=== PATIENT | male | born 1970 | race Caucasian/White ===

== ENCOUNTER 2024-05-01 16:49 | Emergency (ER) | payer BC, SELFPAY ==
[2024-05-01 16:56] VITALS: BP 194/114
[2024-05-01 17:23] LABS: % Basophils 0.2 % (0-2); % Eosinophils 3.9 % (0-6); % Immature Granulocytes 0.2 % (0-0.5); % Lymphocytes 29.6 % (20.5-51.1); % Monocytes 10.5 % (1.7-9.3); % Neutrophils 55.6 % (42.2-75.2); Absolute Eosinophils 0.2 10^3/uL (0-0.7); Absolute Lymphocytes 1.6 10^3/uL (1.2-3.4); Absolute Monocytes 0.6 10^3/uL (0.1-0.6); Hematocrit 43.4 % (39.0-52.0); Hemoglobin 14.8 g/dL (13.0-18.0); Mean Corp Hgb Conc. 34.1 g/dL (33.0-37.0); Mean Corpuscular Hgb 29.3 pg (27.0-31.0); Mean Corpuscular Volume 85.9 fL (80.0-94.0); Mean Platelet Volume 8.9 fL (7.4-10.4); Nucleated Red Blood Cells % 0 % (-); Platelet Count 169 10^3/uL (130-400); Red Blood Cell Count 5.05 10^6/uL (4.70-6.10); Red Cell Dist. Width 12.8 % (11.5-14.5); White Blood Cell Count 5.4 10^3/uL (4.8-10.8)
[2024-05-01 17:33] LABS: ALT (SGPT) 48 U/L (0-50); AST (SGOT) 34 U/L (17-59); Albumin 4.8 g/dl (3.5-5.0); Alkaline Phosphatase 83 U/L (38-126); Blood Urea Nitrogen 18 mg/dl (9-20); Calcium 9.2 mg/dl (8.4-10.2); Carbon Dioxide 28 mmol/L (22-30); Chloride 104 mmol/L (98-107); Glucose 95 mg/dl (70-99); Potassium 3.5 mmol/L (3.5-5.1); Sodium 142 mmol/L (135-145); Total Bilirubin 0.7 mg/dl (0.2-1.3); eGFR > 60.00
[2024-05-01 17:45] LABS: Troponin I < 0.012 ng/ml
--- NOTE | 2024-05-01 20:18 | ED.GENMED ---
History of Present Illness
General
Chief Complaint: Blood Pressure Problem
Time Seen by Provider: 05/01/24 20:06
History of Present Illness
History of Present Illness:
Patient presents to the emergency department with hypertension. Notes that while he was driving today he did have some mild lightheadedness that resolved on its own. This was earlier this afternoon. Denies any chest pain. States that his blood
pressure has been elevated when he is checked in the past though he has never been started on any medication. Denies headache or visual changes. Denies chest pain or difficulty breathing. Denies severe abdominal pain. Denies lower extremity edema
Phy Exam
Physical Exam
Physical Exam:
GENERAL APPEARANCE: NAD, well developed/ well nourished
EYES lids/conjunctiva normal
EARS/NOSE/THROAT Mucous membranes moist, uvula midline without oral pharyngeal erythema, exudate or swelling
HEAD/NECK normocephalic atraumatic, neck is supple.
RESPIRATORY respiratory effort normal, speaks in full sentences, no accessory muscle use. Lungs clear to auscultation without rhonchi, wheezes, rales
CARDIAC Regular rate and rhythm, no edema.
ABDOMINAL Soft, ND/NT.
MUSCLES/EXTREMITIES No abnormal range of motion, no swelling.
SKIN Warm, pink and dry. No rashes
NEUROLOGICAL Speech is clear and appropriate. Normal level of consciousness. 5/5 strength in all extremities.
PSYCH Normal mood and affect. Judgement/competence is appropriate
Course
Orders/Labs/Results
Orders:
Orders
05/01/24 16:59
Electrocardiogram (*1) Urgent
Reason for Study: Hypertension, Benign
EKG- Treatment ONCE
05/01/24 17:09
Complete Blood Count/With Diff Urgent
Comprehensive Metabolic Panel Urgent
Troponin I Urgent
05/01/24 20:18
Amlodipine [Norvasc] 5 mg PO ONCE ONE
Abnormal Lab Results
05/01/24
17:09
Monocytes % 10.5 H %
(1.7-9.3)
05/01/24 17:09
05/01/24 17:09
Vital Signs
Initial and Last Documented VS:
Initial Vital Signs
Temp Pulse Resp BP Pulse Ox
98.2 F 74 18 194/114 98
05/01/24 16:56 05/01/24 16:56 05/01/24 16:56 05/01/24 16:56 05/01/24 16:56
Last Documented Vital Signs
Temp Pulse Resp BP Pulse Ox
98.2 F 74 18 176/108 98
05/01/24 16:56 05/01/24 16:56 05/01/24 16:56 05/01/24 20:26 05/01/24 16:56
*Critical Care Note
Total Time (30-74mins, 75-104mins- exclusive of procedures): Not Applicable
ED Attending Note
ED Attending Note
ED Attending Note:
Patient with asymptomatic hypertension. No evidence of acute endorgan damage. Given his report of multiple prior episodes of hypertension not currently on medication, will prescribe a 30-day course of low-dose amlodipine. Instructed him to
follow-up with his primary care doctor for continued management of this is an outpatient
-
Portions of this chart may have been created with voice recognition software.� Occasional wrong word or��sound alike� substitutions may have occurred due to the inherent limitations of voice recognition software.
Discharge Plan
Departure
Patient Disposition: Home (Routine Discharge)
Date of Disposition: 05/01/24
Time of Disposition: 20:20
Patient with high blood pressure during this ER visit?: Yes
Discharge Problem:
Hypertension
Instructions: High Blood Pressure (DC)
Prescriptions:
New
amlodipine 5 mg tablet
5 mg PO DAILY Qty: 30 0RF
Activity Restrictions/Additional Instructions:
Follow-up closely with your primary doctor for continued management of your blood pressure. Return to the emergency department with new or worsening symptoms.
Interventions
Interventions:
*Risk Screen - Suicide Last Done: 05/01/24 16:56
*General Assessment Last Done: 05/01/24 16:56
*Neglect/Abuse Screening Last Done: 05/01/24 16:56
*ED COVID-19 Vaccine History Last Done: 05/01/24 16:56
*Nursing Disposition Last Done: 05/01/24 20:28
ED- Cardiac Assessment Last Done: 05/01/24 20:06
ED- Neurological Assessment Last Done: 05/01/24 20:06
ED- Pulmonary Assessment Last Done: 05/01/24 20:06
Discharge Date and Time
Discharge Date/Time: 05/01/24 20:37
Print Language: GERMAN
[2024-05-01] MEDS: NORVASC 5 MG PO (20:23)
[2024-05-01 20:26] VITALS: BP 176/108
== END 2024-05-01 20:37 | disposition home or self-care (01) ==
LOC: EMR 16:49
PROVIDERS: Physician Assistant; EMERGENCY PHYSICIAN Emergency Medicine; FAMILY PHYSICIAN Family Medicine
DX: I10 Essential (primary) hypertension (principal)
CPT/HCPCS: 99283; 80053; 84484; 85025; 93005

== ENCOUNTER 2024-06-01 08:02 | Emergency (ER) | payer BC, SELFPAY ==
[2024-06-01 08:07] VITALS: BP 155/90
[2024-06-01 08:23] LABS: % Basophils 0.5 % (0-2); % Eosinophils 5.3 % (0-6); % Immature Granulocytes 0.3 % (0-0.5); % Lymphocytes 22.8 % (20.5-51.1); % Monocytes 8.8 % (1.7-9.3); % Neutrophils 62.3 % (42.2-75.2); Absolute Eosinophils 0.3 10^3/uL (0-0.7); Absolute Lymphocytes 1.3 10^3/uL (1.2-3.4); Absolute Monocytes 0.5 10^3/uL (0.1-0.6); Absolute Neutrophils 3.7 10^3/uL (1.4-6.5); Hematocrit 40.4 % (39.0-52.0); Hemoglobin 14.3 g/dL (13.0-18.0); Mean Corp Hgb Conc. 35.4 g/dL (33.0-37.0); Mean Corpuscular Hgb 29.5 pg (27.0-31.0); Mean Corpuscular Volume 83.5 fL (80.0-94.0); Mean Platelet Volume 9.2 fL (7.4-10.4); Nucleated Red Blood Cells % 0 % (-); Platelet Count 178 10^3/uL (130-400); Red Blood Cell Count 4.84 10^6/uL (4.70-6.10); Red Cell Dist. Width 12.5 % (11.5-14.5); White Blood Cell Count 5.9 10^3/uL (4.8-10.8)
[2024-06-01 08:40] LABS: ALT (SGPT) 42 U/L (0-50); AST (SGOT) 29 U/L (17-59); Albumin 4.5 g/dl (3.5-5.0); Alkaline Phosphatase 97 U/L (38-126); Blood Urea Nitrogen 15 mg/dl (9-20); Calcium 8.8 mg/dl (8.4-10.2); Carbon Dioxide 26 mmol/L (22-30); Chloride 104 mmol/L (98-107); Glucose 98 mg/dl (70-99); Potassium 3.5 mmol/L (3.5-5.1); Sodium 139 mmol/L (135-145); Total Bilirubin 0.8 mg/dl (0.2-1.3); Total Protein 6.7 g/dl (6.3-8.2); eGFR > 60.00
[2024-06-01 08:50] LABS: Troponin I < 0.012 ng/ml
--- NOTE | 2024-06-01 11:17 | ED.GENMED ---
History of Present Illness
General
Chief Complaint: Chest Pain
Source: patient
Exam Limitations: none
Time Seen by Provider: 06/01/24 10:47
Nursing documentation reviewed up to this point in time: agreed with
History of Present Illness
History of Present Illness:
54 y/o M with h/o newly dx htn
on amlodipine since being seen here 05/01
had fu with PCP the following week, told to check bp a few times a day and has f/u today with PCP at 1pm
he has beent aking his bp 4-5 times a day and getting readings 140s-170s/90-100s
he starte dhaving chest tightness 2 days ago, feeling sore like achy muscle in L upper chest
worse with bending over but not worse with exetion, no sob, no pleuritic pain, no leg swelling, no fever/chills
no radiation to back and arm and neck
fhx of CAD in [place]
but no personal history
pt has been feeling stressed
no h/o blood clots
he did fall 2 weeks ago, incidentlaly; wasn't tyler to mention this but whne i mentioned gettting xray, he remembered about a rib series xray he wanted to get but never did after falling 2 weeks ago on to R ribs; he has no pleuritic pain there
anymore but is requesting xray.
Past History
Past History
ED Past Medical History: HTN
Social History
Tobacco: Non-smoker
Alcohol: None
Drug: None
Personal: Single
Employment: Employed
Review of Systems
Review of Systems
Allergies reviewed?: Yes
All Other Systems: Not applicable
Phy Exam
Physical Exam
Physical Exam:
GENERAL: Alert , in no apparent distress
EYE: pupils equal and reactive
NECK: Supple
ENT: o/p clr, mmm.
CARDIAC: Regular rate and rhythm .
LUNGS: Clear breath sounds bilaterally, no acute respiratory distress, no wheezes/rales/rhonchi
CHEST WAL: nontender, normal movmeent;
ABDOMEN: Soft, without focal tenderness, no r/g, no cvat, normal bowel sounds
NEUROLOGICAL: Alert and oriented, no focal neuro deficits
SKIN: Warm and dry, skin intact.
MUSCULOSKELETAL: No edema, well perfused. neg bud's sign
PSYCH: seems anxious
Scores
Heart Score for Chest Pain Patients
STEMI patient?: No
History: Slightly or Non-Suspicious
ECG: Normal
Age: >45 - <65 years
Risk Factors: 1 or 2 Risk Factors
Troponin: </= Normal Limit
Heart Score for Chest Pain Patients: 2
Heart Score Risk: 2.5% MACE over next 6 weeks
Course
Orders/Labs/Results
Orders:
Orders
06/01/24 08:03
Electrocardiogram (*1) Urgent
Reason for Study: Chest Pain
EKG- Treatment ONCE
06/01/24 08:12
Complete Blood Count/With Diff Urgent
Comprehensive Metabolic Panel Urgent
Troponin I Urgent
06/01/24 11:20
CR Chest - 2 Views Urgent
Comment:
Reason For Exam: chest pain
06/01/24 11:22
CR Ribs-right 2 Vw No Pa Chest Urgent
Reason For Exam: R rib injury 2 weeks ago, mild pain
06/01/24 08:12
06/01/24 08:12
Vital Signs
Initial and Last Documented VS:
Initial Vital Signs
Temp Pulse Resp BP Pulse Ox
36.6 C 67 18 155/90 97
06/01/24 08:07 06/01/24 08:07 06/01/24 08:07 06/01/24 08:07 06/01/24 08:07
Last Documented Vital Signs
Temp Pulse Resp BP Pulse Ox
36.6 C 66 13 145/93 96
06/01/24 08:07 06/01/24 11:23 06/01/24 11:23 06/01/24 11:23 06/01/24 11:23
MDM/Problems Addressed
Differential Diagnosis Includes:
anxiety, chest wall pain, htn, acs
MDM/Problems Addressed:
54 y/o M with h/o HTN newly diagnosed
here with elevated bp readings from home and chest discomfort x 2 days
pt has f/u with pcp bren[place] to discuss his bp
but has been feeling mild soreness in L upper chest
it is not pleuritic or exertional
probably incidetnally he had a feall 2 weeks ago and ishmael R ribs, went to and he was supposed to get xray but never did an dis requesting it here
he has not had any ongoig pain
no weaknes
no PE rf
well appearing
bp 140/90s
ekg nonischemic, nsr
trop neg
with ongoing symptoms for 2 days, this is unlikely ACS
f/u pcp
outpatient cards
*Critical Care Note
Total Time (30-74mins, 75-104mins- exclusive of procedures): Not Applicable
ED Attending Note
-
Portions of this chart may have been created with voice recognition software.� Occasional wrong word or��sound alike� substitutions may have occurred due to the inherent limitations of voice recognition software.
Discharge Plan
Departure
Patient Disposition: Home (Routine Discharge)
Date of Disposition: 06/01/24
Time of Disposition: 11:52
Patient with high blood pressure during this ER visit?: Yes
Condition: Fair
Covid-19: Not Applicable
Discharge Problem:
Hypertension, Chest pain in adult
Instructions: High Blood Pressure (DC), Chest Pain PCP Follow Up
Prescriptions:
No Action
amlodipine 5 mg tablet
5 mg PO DAILY Qty: 30 0RF
Referrals:
Gera Campa MD [Active] - Follow up in 5-7 days (CARDS)
Shaggy Garcia MD [Family Provider] -
Activity Restrictions/Additional Instructions:
SEE YOUR DOCTOR TODAY REGARDING YOUR BLOOD PRESSURE
YOUR WORK UP HERE IS UNREMARKABLE AND REASSURING THAT THIS CHEST PAIN IS NOT DUE TO YOUR HEART
FOLLOW UP WITH [facility]
RETURN FOR ANY CONCERNING SYMPTOMS OR WORSE/PERSISTENT PAIN, IEXERTIONAL PAIN, SHORTNESS OFB REATH, ETC
Interventions
Interventions:
*Risk Screen - Suicide Last Done: 06/01/24 08:07
*General Assessment Last Done: 06/01/24 08:07
*Neglect/Abuse Screening Last Done: 06/01/24 08:07
*Nursing Disposition Last Done: 06/01/24 12:11
ED- Cardiac Assessment Last Done: 06/01/24 11:24
ED- Neurological Assessment Last Done: 06/01/24 11:24
ED- Pulmonary Assessment Last Done: 06/01/24 11:24
Discharge Date and Time
Discharge Date/Time: 06/01/24 12:11
Print Language: HUNGARIAN
[2024-06-01 11:23] VITALS: BP 145/93
== END 2024-06-01 12:11 | disposition home or self-care (01) ==
LOC: EMR 08:02
PROVIDERS: EMERGENCY PHYSICIAN Emergency Medicine; FAMILY PHYSICIAN Family Medicine
DX: R07.89 Other chest pain (principal); I10 Essential (primary) hypertension; Z79.899 Other long term (current) drug therapy
CPT/HCPCS: 99285; 71046; 71100; 80053; 84484; 85025; 93005